=== PATIENT | male | born 1950 | race Caucasian/White ===

== ENCOUNTER 2018-08-25 19:59 | Inpatient (IN) | payer MEDICARE, BC ==
[2018-08-25 21:47] LABS: ADD MAN DIFF? NO
[2018-08-25 21:49] LABS: ABNORMAL IP MESSAGE 1; BASOPHIL # 0.1 10^3/ul (0.0-0.1); BASOPHILS % 0.5 % (0.0-2.0); EOSINOPHILS # 0.1 10^3/ul (0.0-0.5); EOSINOPHILS % 0.6 % (0.0-7.0); HEMATOCRIT 30.3 % (42.0-52.0); HEMOGLOBIN 9.5 g/dl (14.0-18.0); LYMPHOCYTES # 1.4 10^3/ul (0.8-2.9); LYMPHOCYTES % 8.1 % (15.0-51.0); MEAN CORPUSCULAR HEMOGLOBIN 20.9 pg (29.0-33.0); MEAN CORPUSCULAR HGB CONC 31.4 g/dl (32.0-37.0); MEAN CORPUSCULAR VOLUME 66.6 fl (82.0-101.0); MEAN PLATELET VOLUME 11.2 fl (7.4-10.4); MONOCYTES % 5.9 % (0.0-11.0); NEUTROPHIL # 13.1 10^3/ul (1.6-7.5); NEUTROPHILS % 76.8 % (39.0-77.0); PLATELET COUNT 240 10^3/UL (140-415); POSITIVE DIFF @See below; RED BLOOD COUNT 4.55 10^6/ul (4.70-6.10); RED CELL DISTRIBUTION WIDTH 15.9 % (11.5-14.5)
[2018-08-25 21:55] LABS: ALANINE AMINOTRANSFERASE 95 IU/L (13-69); ALBUMIN 3.2 g/dl (3.3-4.9); ALBUMIN/GLOBULIN RATIO 1.03; ALKALINE PHOSPHATASE 137 IU/L (42-121); ANION GAP 8 (5-13); ASPARTATE AMINO TRANSFERASE 85 IU/L (15-46); BILIRUBIN,INDIRECT 0.8 mg/dl (0-1.1); BILIRUBIN,TOTAL 0.8 mg/dl (0.2-1.3); BLOOD UREA NITROGEN 22 mg/dl (7-20); CALCIUM 8.9 mg/dl (8.4-10.2); CARBON DIOXIDE 26 mmol/L (21-31); CHLORIDE 103 mmol/L (97-110); Estimated GFR 46 mL/min (>60); GLUCOSE 202 mg/dl (70-220); LIPASE 213 U/L (23-300); POTASSIUM 3.5 mmol/L (3.5-5.1); SODIUM 137 mmol/L (135-144); TOTAL PROTEIN 6.3 g/dl (6.1-8.1)
[2018-08-25] MEDS: SOD CHLORIDE 0.9% 1,000 ML IV (22:07)
[2018-08-25] MEDS: ONDANSETRON 4 MG INJ IV (22:07)
[2018-08-25] MEDS: morphine 4 MG/ML VIAL IV (22:07)
[2018-08-25 22:17] LABS: TROPONIN-I < 0.012 ng/ml (0.000-0.120)
[2018-08-25 23:04] LABS: ADD UMIC YES; UR ASCORBIC ACID NEGATIVE (NEGATIVE); UR BILIRUBIN (Dip) NEGATIVE (NEGATIVE); UR BLOOD (Dip) 1+ mg/dL (NEGATIVE); UR CLARITY CLEAR (CLEAR); UR COLOR YELLOW (YELLOW); UR GLUCOSE (Dip) 1+ mg/dL (NEGATIVE); UR KETONES (Dip) NEGATIVE (NEGATIVE); UR LEUKOCYTE ESTERASE (Dip) NEGATIVE Leu/ul (NEGATIVE); UR NITRITE (Dip) NEGATIVE (NEGATIVE); UR RBC 1 /HPF (0-5); UR SPECIFIC GRAVITY (Dip) 1.021 (1.003-1.030); UR TOTAL PROTEIN (Dip) 1+ mg/dl (NEGATIVE); UR UROBILINOGEN (Dip) NEGATIVE (NEGATIVE); UR WBC 4 /HPF (0-5)
[2018-08-25] MEDS: PIPER-TAZO 3.375 GM IV (PMX) 100 ML IVPB (23:45)
[2018-08-26] MEDS ORDERED: NACL 0.9% 3 ML SYG IV (00:30)
[2018-08-26] MEDS ORDERED: morphine 2 MG INJ IV (00:30)
[2018-08-26] MEDS ORDERED: ZOLPIDEM 5 MG TAB PO (00:30)
[2018-08-26] MEDS ORDERED: LORAZEPAM 2 MG INJ IV (00:30)
[2018-08-26] MEDS ORDERED: ACETAMINOPHEN 650 MG SUPP PR (00:30)
[2018-08-26] MEDS: AL HYDROX/MG HYDROX/SIMETH 30 ML CUP PO ×9 (01:00→21:00)
[2018-08-26] MEDS: FAMOTIDINE 20 MG INJ IV ×4 (01:00→20:14)
[2018-08-26] MEDS: SOD CHLORIDE 0.9% 1,000 ML IV (01:18)
[2018-08-26 01:21] LABS: AMYLASE 58 U/L (11-123)
[2018-08-26 01:21] LABS: LIPASE 279 U/L (23-300)
[2018-08-26 01:37] LABS: D-DIMER 3825.24 ng/ml (<460)
[2018-08-26 01:43] LABS: PARTIAL THROMBOPLASTIN TIME 36.1 Sec (23.0-35.0)
[2018-08-26] MEDS ORDERED: GLUCOSE GEL 15 GRAM TUBE BUCCAL (06:30)
[2018-08-26] MEDS ORDERED: GLUCOSE GEL 15 GRAM TUBE PO ×2 (06:30)
[2018-08-26] MEDS ORDERED: DEXTROSE 50% 50 ML SYRINGE IV ×2 (06:30)
[2018-08-26] MEDS ORDERED: GLUCAGON 1 MG INJ IM (06:30)
[2018-08-26] MEDS ORDERED: INSULIN ASPART [NOVOLOG] 3 ML PEN SC (08:00)
[2018-08-26] MEDS: INSULIN ASPART [NOVOLOG] 3 ML PEN SC ×5 (08:00→20:20)
[2018-08-26 08:50] LABS: HEMOGLOBIN A1C 8.9 % (0-5.9)
[2018-08-26] MEDS: ENOXAPARIN 40 MG/0.4 ML SYG SC (09:00)
[2018-08-26] MEDS: DEXTROSE 5%-0.45% NACL 1,000 ML IV (17:36)
[2018-08-26] MEDS: INSULIN GLARGINE [LANTus] (100 UNITS/ML) SYG SC (20:16)
[2018-08-27] MEDS: ACETAMINOPHEN 325 MG TAB PO (00:35)
[2018-08-27] MEDS: CLONIDINE 0.1 MG/24 HR PATCH TRANSDERM (00:36)
[2018-08-27] MEDS: INSULIN ASPART [NOVOLOG] 3 ML PEN SC ×6 (00:38→18:07)
[2018-08-27] MEDS: hydrALAzine 20 MG INJ IV ×4 (01:24→15:03)
[2018-08-27] MEDS: SOD CHLORIDE 0.45% 1,000 ML IV ×3 (05:03→20:44)
[2018-08-27 06:33] LABS: WHITE BLOOD COUNT 16.4 10^3/ul (4.8-10.8)
[2018-08-27 06:33] LABS: ABNORMAL IP MESSAGE 1; HEMATOCRIT 32.6 % (42.0-52.0); MEAN CORPUSCULAR HEMOGLOBIN 20.6 pg (29.0-33.0); MEAN CORPUSCULAR HGB CONC 30.7 g/dl (32.0-37.0); MEAN CORPUSCULAR VOLUME 67.1 fl (82.0-101.0); MEAN PLATELET VOLUME 11.7 fl (7.4-10.4); PLATELET COUNT 308 10^3/UL (140-415); POSITIVE DIFF @See below; RED BLOOD COUNT 4.86 10^6/ul (4.70-6.10); RED CELL DISTRIBUTION WIDTH 16.2 % (11.5-14.5)
[2018-08-27 06:47] LABS: ADD MAN DIFF? YES
[2018-08-27 07:04] LABS: ALANINE AMINOTRANSFERASE 107 IU/L (13-69); ALBUMIN/GLOBULIN RATIO 1.07; ALKALINE PHOSPHATASE 143 IU/L (42-121); ANION GAP 10 (5-13); ASPARTATE AMINO TRANSFERASE 71 IU/L (15-46); BILIRUBIN,INDIRECT 1.1 mg/dl (0-1.1); BILIRUBIN,TOTAL 1.1 mg/dl (0.2-1.3); BLOOD UREA NITROGEN 17 mg/dl (7-20); CALCIUM 8.6 mg/dl (8.4-10.2); CARBON DIOXIDE 27 mmol/L (21-31); CHLORIDE 102 mmol/L (97-110); CHOL/HDL RATIO 12.6 RATIO; CHOLESTEROL 126 mg/dl (100-200); CREATININE 1.37 mg/dl (0.61-1.24); Estimated GFR 51 mL/min (>60); GLUCOSE 199 mg/dl (70-220); HDL CHOLESTEROL 10 mg/dl (31-75); LDL CHOLESTEROL,CALCULATED 59 mg/dl; MAGNESIUM 1.9 mg/dl (1.7-2.5); POTASSIUM 3.7 mmol/L (3.5-5.1); SODIUM 139 mmol/L (135-144); TOTAL PROTEIN 5.8 g/dl (6.1-8.1); TRIGLYCERIDES 287 mg/dl (0-149)
[2018-08-27 07:48] LABS: ANISOCYTOSIS 1+ (0-0); BAND NEUTROPHILS #M 1.3 10^3/ul (0.0-0.6); BAND NEUTROPHILS % (M) 8 % (0-4); ELLIPTO 1+ (0-0); GIANT THROMBO% (M) 2 % (0-0); LYMPHOCYTES #M 1.9 10^3/ul (0.8-2.9); LYMPHOCYTES % (M) 12 % (15-51); MONOCYTE #M 0.3 10^3/ul (0.3-0.9); MONOCYTES % (M) 2 % (0-11); MYELOCYTES #M 0.1 10^3/ul (0.0-0.0); MYELOCYTES % (M) 1 % (0-0); OVALOCYTES 1+ (0-0); PLATELET ESTIMATE NORMAL; POIKILOCYTOSIS 1+ (0-0); REACTIVE LYMPHOCYTES #M 0.1 10^3/ul (0.0-0.0); REACTIVE LYMPHOCYTES% (M) 1 % (0-0); SEG NEUT #M 12.7 10^3/ul (1.6-7.5); SEGMENTED NEUTROPHILS (M) % 76 % (39-77); SMUDGE%M 7 % (0-0)
[2018-08-27 07:51] LABS: TOXIC GRANULATION 1+ (0-0)
[2018-08-27] MEDS ORDERED: PIPER-TAZO 3.375 GM IV (PMX) 100 ML IVPB (08:00)
[2018-08-27 08:07] LABS: HEMOGLOBIN A1C 9.1 % (0-5.9)
[2018-08-27] MEDS: ENOXAPARIN 40 MG/0.4 ML SYG SC (09:00)
[2018-08-27] MEDS: FAMOTIDINE 20 MG INJ IV ×3 (09:00→20:52)
[2018-08-27] MEDS: PIPER-TAZO 3.375 GM IV (PMX) 100 ML IVPB ×3 (09:20→18:03)
[2018-08-27] MEDS: REGADENOSON 0.4 MG/5 ML SYG (13:30)
[2018-08-27] MEDS: CLONIDINE 0.2 MG/24 HR PATCH TRANSDERM (14:59)
[2018-08-27] MEDS ORDERED: VANCOMYCIN IV PER PHARMACY XX (16:30)
[2018-08-27] MEDS: AL HYDROX/MG HYDROX/SIMETH 30 ML CUP PO ×2 (16:50→21:00)
[2018-08-27] MEDS ORDERED: IOHEXOL 300MG/ML 30 ML BTL (17:31)
[2018-08-27 18:20] LABS: INR 1.08; PROTIME 14.1 Sec (11.9-14.9); PT RATIO 1.1
[2018-08-27 18:21] LABS: PARTIAL THROMBOPLASTIN TIME 39.4 Sec (23.0-35.0)
[2018-08-27 18:33] LABS: LACTIC ACID 1.2 mmol/L (0.5-2.0)
[2018-08-27] MEDS ORDERED: MIDAZOLAM 1 MG/ML 2 ML INJ (18:49)
[2018-08-27] MEDS ORDERED: FENTAnyl 50 MCG/ML VIAL (18:50)
[2018-08-27] MEDS ORDERED: ONDANSETRON 4 MG INJ (19:24)
[2018-08-27] MEDS ORDERED: LIDOCAINE 2% (SDV) 5 ML INJ (19:27)
[2018-08-27] MEDS ORDERED: ROCURONIUM 50 MG INJ (19:27)
[2018-08-27] MEDS ORDERED: ETOMIDATE 20 MG INJ (19:27)
[2018-08-27] MEDS ORDERED: NEOSTIGMINE 3 MG/3 ML SYRINGE (19:27)
[2018-08-27] MEDS ORDERED: GLYCOPYRROLATE 0.4 MG INJ (19:27)
[2018-08-27] MEDS: INDOMETHACIN 50 MG SUPP PR (19:30)
[2018-08-27] MEDS ORDERED: FENTAnyl 50 MCG/ML VIAL IV (20:00)
[2018-08-27] MEDS ORDERED: LABETALOL HCL 20MG INJ IV (20:00)
[2018-08-27] MEDS ORDERED: MEPERIDINE 25 MG INJ IV (20:00)
[2018-08-27] MEDS ORDERED: hydrALAzine 20 MG INJ IV (20:00)
[2018-08-27] MEDS ORDERED: HYDROmorphONE 1 MG/5 ML IV SYRINGE IV ×2 (20:00)
[2018-08-27] MEDS: INSULIN GLARGINE [LANTus] (100 UNITS/ML) SYG SC (20:00)
[2018-08-27] MEDS ORDERED: ONDANSETRON 4 MG INJ IV (20:00)
[2018-08-27] MEDS ORDERED: DIPHENHYDRAMINE 50 MG INJ IV (20:00)
[2018-08-27] MEDS: VANCOMYCIN HCL 1.75 GM in SOD CHLORIDE 0.9% 500 ML IVPB (20:42)
[2018-08-28] MEDS: INSULIN ASPART [NOVOLOG] 3 ML PEN SC ×4 (01:00→13:00)
[2018-08-28] MEDS: PIPER-TAZO 3.375 GM IV (PMX) 100 ML IVPB ×4 (01:13→21:37)
[2018-08-28] MEDS ORDERED: CEFAZOLIN 1 GM INJ (07:00)
[2018-08-28] MEDS ORDERED: ACETAMINOPHEN 500 MG TAB PO (07:40)
[2018-08-28] MEDS: AL HYDROX/MG HYDROX/SIMETH 30 ML CUP PO ×4 (08:59→21:00)
[2018-08-28] MEDS: ENOXAPARIN 40 MG/0.4 ML SYG SC (08:59)
[2018-08-28] MEDS: FAMOTIDINE 20 MG INJ IV ×2 (09:00→21:00)
[2018-08-28] MEDS ORDERED: PROPOFOL 40 ML (09:13)
[2018-08-28] MEDS ORDERED: LIDOCAINE 2% (SDV) 5 ML INJ (09:13)
[2018-08-28] MEDS ORDERED: ONDANSETRON 4 MG INJ (09:13)
[2018-08-28] MEDS ORDERED: FENTAnyl 50 MCG/ML VIAL ×2 (09:13→10:39)
[2018-08-28] MEDS ORDERED: ROCURONIUM 50 MG INJ (09:13)
[2018-08-28] MEDS ORDERED: FAMOTIDINE 20 MG INJ (09:14)
[2018-08-28] MEDS ORDERED: DIPHENHYDRAMINE 50 MG INJ IV (09:30)
[2018-08-28] MEDS ORDERED: MEPERIDINE 25 MG INJ IV (09:30)
[2018-08-28] MEDS ORDERED: morphine 2 MG INJ IV ×2 (09:30)
[2018-08-28] MEDS ORDERED: ALBUTEROL 0.083% (NEB) 2.5 MG/3 ML AMP HHN (09:30)
[2018-08-28] MEDS ORDERED: OXYCODONE/ACETAMINOPHEN (5/325) TAB PO ×4 (09:30→14:01)
[2018-08-28] MEDS ORDERED: HYDROmorphONE 1 MG/5 ML IV SYRINGE IV ×2 (09:30)
[2018-08-28] MEDS ORDERED: ONDANSETRON 4 MG INJ IV ×2 (09:30→11:00)
[2018-08-28] MEDS ORDERED: FENTAnyl 50 MCG/ML VIAL IV ×2 (09:30)
[2018-08-28] MEDS ORDERED: LABETALOL HCL 20MG INJ IV (09:30)
[2018-08-28] MEDS ORDERED: EPHEDrine 25 MG/5 ML SYG (09:44)
[2018-08-28] MEDS ORDERED: PHENYLephrine (100 MCG/ML) 10ML SYG (09:44)
[2018-08-28] MEDS ORDERED: ROPIVACAINE 0.5 % 30 ML VIAL (09:48)
[2018-08-28] MEDS: BUPIVACAINE 0.25% (MPF) 30 ML INJ (10:00)
[2018-08-28] MEDS ORDERED: metroNIDAZOLE 500 MG/NS (PMX) 100 ML IVPB (10:24)
[2018-08-28] MEDS ORDERED: SUGAMMADEX SODIUM 200 MG/2 ML VIAL IV (10:30)
[2018-08-28 11:30] LABS: ABNORMAL IP MESSAGE 1; HEMOGLOBIN 9.1 g/dl (14.0-18.0); MEAN CORPUSCULAR HEMOGLOBIN 20.6 pg (29.0-33.0); MEAN CORPUSCULAR HGB CONC 30.3 g/dl (32.0-37.0); MEAN PLATELET VOLUME 10.9 fl (7.4-10.4); PLATELET COUNT 290 10^3/UL (140-415); POSITIVE DIFF @See below; RED BLOOD COUNT 4.41 10^6/ul (4.70-6.10); RED CELL DISTRIBUTION WIDTH 16.2 % (11.5-14.5)
[2018-08-28 11:30] LABS: WHITE BLOOD COUNT 12.3 10^3/ul (4.8-10.8)
[2018-08-28 11:40] LABS: ADD MAN DIFF? YES
[2018-08-28 11:53] LABS: ALANINE AMINOTRANSFERASE 78 IU/L (13-69); ALBUMIN 2.8 g/dl (3.3-4.9); ALBUMIN/GLOBULIN RATIO 0.87; ALKALINE PHOSPHATASE 139 IU/L (42-121); ANION GAP 12 (5-13); ASPARTATE AMINO TRANSFERASE 48 IU/L (15-46); BILIRUBIN,INDIRECT 0.5 mg/dl (0-1.1); BILIRUBIN,TOTAL 0.5 mg/dl (0.2-1.3); BLOOD UREA NITROGEN 22 mg/dl (7-20); CALCIUM 7.8 mg/dl (8.4-10.2); CARBON DIOXIDE 21 mmol/L (21-31); CHLORIDE 108 mmol/L (97-110); CREATININE 1.86 mg/dl (0.61-1.24); Estimated GFR 36 mL/min (>60); GLUCOSE 205 mg/dl (70-220); LIPASE 91 U/L (23-300); POTASSIUM 3.5 mmol/L (3.5-5.1); SODIUM 141 mmol/L (135-144)
[2018-08-28] MEDS: HYDROmorphONE 1 MG/5 ML IV SYRINGE IV (11:54)
[2018-08-28 12:18] LABS: ANISOCYTOSIS 1+ (0-0); BAND NEUTROPHILS #M 0.4 10^3/ul (0.0-0.6); BAND NEUTROPHILS % (M) 4 % (0-4); BURR CELLS 1+ (0-0); HYPOCHROMASIA 1+ (0-0); LYMPHOCYTES #M 0.9 10^3/ul (0.8-2.9); LYMPHOCYTES % (M) 8 % (15-51); METAMYELOCYTES #M 0.1 10^3/ul (0.0-0.0); METAMYELOCYTES %M 1 % (0-0); MICROCYTOSIS 1+ (0-0); MONOCYTE #M 0.4 10^3/ul (0.3-0.9); MONOCYTES % (M) 4 % (0-11); MYELOCYTES #M 0.1 10^3/ul (0.0-0.0); MYELOCYTES % (M) 1 % (0-0); OVALOCYTES 1+ (0-0); PLATELET ESTIMATE NORMAL; POIKILOCYTOSIS 2+ (0-0); POLYCHROMASIA 1+ (0-0); REACTIVE LYMPHOCYTES #M 0.1 10^3/ul (0.0-0.0); REACTIVE LYMPHOCYTES% (M) 1 % (0-0); SEGMENTED NEUTROPHILS (M) % 81 % (39-77)
[2018-08-28] MEDS: SOD CHLORIDE 0.45% 1,000 ML IV (12:33)
[2018-08-28] MEDS: TERAZOSIN 5 MG CAP PO (13:44)
[2018-08-28] MEDS: ONDANSETRON 4 MG INJ IV (15:04)
[2018-08-28] MEDS: Insulin NOVOLOG SS MODERATE Algorithm (SS with meals and bedtime) SC ×2 (17:29→21:34)
[2018-08-28] MEDS ORDERED: INSULIN ASPART [NOVOLOG] 3 ML PEN SC (17:35)
[2018-08-28] MEDS: INSULIN GLARGINE [LANTus] (100 UNITS/ML) SYG SC (21:30)
[2018-08-28] MEDS: morphine 2 MG INJ IV (22:00)
[2018-08-29] MEDS: TERAZOSIN 5 MG CAP PO ×3 (01:19→21:02)
[2018-08-29] MEDS: morphine 2 MG INJ IV (01:26)
[2018-08-29] MEDS: SOD CHLORIDE 0.45% 1,000 ML IV ×2 (03:30→16:13)
[2018-08-29] MEDS: PIPER-TAZO 3.375 GM IV (PMX) 100 ML IVPB ×3 (06:20→22:04)
[2018-08-29] MEDS: Insulin NOVOLOG SS MODERATE Algorithm (SS with meals and bedtime) SC ×4 (08:10→21:05)
[2018-08-29] MEDS: AL HYDROX/MG HYDROX/SIMETH 30 ML CUP PO ×4 (08:11→21:02)
[2018-08-29] MEDS: ENOXAPARIN 40 MG/0.4 ML SYG SC (08:11)
[2018-08-29] MEDS: FAMOTIDINE 20 MG INJ IV (08:12)
[2018-08-29] MEDS: VANCOMYCIN HCL 1.25 GM in SOD CHLORIDE 0.9% 250 ML IVPB (08:56)
[2018-08-29] MEDS: ACETAMINOPHEN 325 MG TAB PO (08:57)
[2018-08-29 10:47] LABS: ADD MAN DIFF? NO
[2018-08-29 10:49] LABS: WHITE BLOOD COUNT 11.6 10^3/ul (4.8-10.8)
[2018-08-29 10:49] LABS: ABNORMAL IP MESSAGE 1; BASOPHILS % 0.3 % (0.0-2.0); EOSINOPHILS # 0.1 10^3/ul (0.0-0.5); EOSINOPHILS % 0.6 % (0.0-7.0); HEMATOCRIT 26.2 % (42.0-52.0); HEMOGLOBIN 8.1 g/dl (14.0-18.0); LYMPHOCYTES # 1.2 10^3/ul (0.8-2.9); MEAN CORPUSCULAR HEMOGLOBIN 20.7 pg (29.0-33.0); MEAN CORPUSCULAR HGB CONC 30.9 g/dl (32.0-37.0); MEAN PLATELET VOLUME 10.6 fl (7.4-10.4); MONOCYTE # 0.8 10^3/ul (0.3-0.9); MONOCYTES % 7.2 % (0.0-11.0); NEUTROPHIL # 8.8 10^3/ul (1.6-7.5); NEUTROPHILS % 76.2 % (39.0-77.0); PLATELET COUNT 277 10^3/UL (140-415); POSITIVE DIFF @See below; RED BLOOD COUNT 3.91 10^6/ul (4.70-6.10); RED CELL DISTRIBUTION WIDTH 16.1 % (11.5-14.5)
[2018-08-29 11:07] LABS: BILIRUBIN,INDIRECT 0.8 mg/dl (0-1.1); BILIRUBIN,TOTAL 0.8 mg/dl (0.2-1.3)
[2018-08-29 11:08] LABS: IRON < 10 ug/dl (35-150)
[2018-08-29 11:09] LABS: ALANINE AMINOTRANSFERASE 55 IU/L (13-69); ALBUMIN 2.6 g/dl (3.3-4.9); ALBUMIN/GLOBULIN RATIO 0.86; ALKALINE PHOSPHATASE 105 IU/L (42-121); ANION GAP 9 (5-13); ASPARTATE AMINO TRANSFERASE 31 IU/L (15-46); BILIRUBIN,INDIRECT 0.8 mg/dl (0-1.1); BILIRUBIN,TOTAL 0.8 mg/dl (0.2-1.3); BLOOD UREA NITROGEN 21 mg/dl (7-20); CALCIUM 7.7 mg/dl (8.4-10.2); CARBON DIOXIDE 22 mmol/L (21-31); CHLORIDE 108 mmol/L (97-110); CREATININE 1.88 mg/dl (0.61-1.24); Estimated GFR 36 mL/min (>60); GLUCOSE 264 mg/dl (70-220); LIPASE 155 U/L (23-300); POTASSIUM 3.5 mmol/L (3.5-5.1); SODIUM 139 mmol/L (135-144); TOTAL PROTEIN 5.6 g/dl (6.1-8.1)
[2018-08-29 11:17] LABS: TOTAL IRON BINDING CAPACITY 212 ug/dl (241-421)
[2018-08-29 13:04] LABS: ADD UMIC YES; UR ASCORBIC ACID NEGATIVE (NEGATIVE); UR BACTERIA FEW /HPF (NONE SEEN); UR BILIRUBIN (Dip) NEGATIVE (NEGATIVE); UR BLOOD (Dip) 2+ mg/dL (NEGATIVE); UR CLARITY SLIGHTLY CLOUDY (CLEAR); UR COLOR YELLOW (YELLOW); UR GLUCOSE (Dip) 1+ mg/dL (NEGATIVE); UR KETONES (Dip) NEGATIVE (NEGATIVE); UR LEUKOCYTE ESTERASE (Dip) TRACE Leu/ul (NEGATIVE); UR NITRITE (Dip) NEGATIVE (NEGATIVE); UR RBC 20 /HPF (0-5); UR SPECIFIC GRAVITY (Dip) 1.017 (1.003-1.030); UR TOTAL PROTEIN (Dip) 1+ mg/dl (NEGATIVE); UR UROBILINOGEN (Dip) NEGATIVE (NEGATIVE); UR WBC 9 /HPF (0-5)
[2018-08-29] MEDS: SOD FERRIC GLUC COMPLX 125 MG in SOD CHLORIDE 0.9% 100 ML IVPB (17:10)
[2018-08-29] MEDS: INSULIN GLARGINE [LANTus] (100 UNITS/ML) SYG SC (21:04)
[2018-08-29] MEDS ORDERED: ALBUTEROL/IPRATROPIUM (NEB) 3 ML AMP HHN (22:30)
[2018-08-29] MEDS: ALBUTEROL/IPRATROPIUM (NEB) 3 ML AMP HHN (23:29)
[2018-08-30] MEDS: PIPER-TAZO 3.375 GM IV (PMX) 100 ML IVPB ×3 (05:30→23:41)
[2018-08-30] MEDS: ALBUTEROL/IPRATROPIUM (NEB) 3 ML AMP HHN ×2 (08:00→16:00)
[2018-08-30 08:15] LABS: ABNORMAL IP MESSAGE 1; HEMATOCRIT 25.7 % (42.0-52.0); MEAN CORPUSCULAR HEMOGLOBIN 20.7 pg (29.0-33.0); MEAN CORPUSCULAR HGB CONC 31.1 g/dl (32.0-37.0); MEAN CORPUSCULAR VOLUME 66.4 fl (82.0-101.0); MEAN PLATELET VOLUME 11.2 fl (7.4-10.4); PLATELET COUNT 306 10^3/UL (140-415); POSITIVE DIFF @See below; RED BLOOD COUNT 3.87 10^6/ul (4.70-6.10); RED CELL DISTRIBUTION WIDTH 15.8 % (11.5-14.5)
[2018-08-30 08:15] LABS: WHITE BLOOD COUNT 11.4 10^3/ul (4.8-10.8)
[2018-08-30 08:20] LABS: ADD MAN DIFF? YES
[2018-08-30 08:37] LABS: ALANINE AMINOTRANSFERASE 44 IU/L (13-69); ALBUMIN 2.4 g/dl (3.3-4.9); ALBUMIN/GLOBULIN RATIO 0.92; ALKALINE PHOSPHATASE 99 IU/L (42-121); ANION GAP 9 (5-13); ASPARTATE AMINO TRANSFERASE 21 IU/L (15-46); BILIRUBIN,INDIRECT 0.8 mg/dl (0-1.1); BILIRUBIN,TOTAL 0.8 mg/dl (0.2-1.3); BLOOD UREA NITROGEN 16 mg/dl (7-20); CALCIUM 7.7 mg/dl (8.4-10.2); CARBON DIOXIDE 22 mmol/L (21-31); CHLORIDE 108 mmol/L (97-110); CREATININE 1.87 mg/dl (0.61-1.24); Estimated GFR 36 mL/min (>60); GLUCOSE 231 mg/dl (70-220); POTASSIUM 3.6 mmol/L (3.5-5.1); SODIUM 139 mmol/L (135-144)
[2018-08-30] MEDS: FAMOTIDINE 20 MG TAB PO (08:53)
[2018-08-30] MEDS: TERAZOSIN 5 MG CAP PO ×2 (08:53→20:41)
[2018-08-30] MEDS: ENOXAPARIN 40 MG/0.4 ML SYG SC (08:54)
[2018-08-30] MEDS: AL HYDROX/MG HYDROX/SIMETH 30 ML CUP PO ×4 (08:54→20:54)
[2018-08-30 08:55] LABS: D-DIMER 3773.83 ng/ml (<460)
[2018-08-30] MEDS: Insulin NOVOLOG SS MODERATE Algorithm (SS with meals and bedtime) SC ×4 (08:55→20:35)
[2018-08-30 09:55] LABS: ANISOCYTOSIS 2+ (0-0); BAND NEUTROPHILS #M 0.2 10^3/ul (0.0-0.6); BAND NEUTROPHILS % (M) 2 % (0-4); BASOPHIL #M 0.1 10^3/ul (0.0-0.0); BASOPHILS % (M) 1 % (0-2); BURR CELLS 1+ (0-0); HYPOCHROMASIA 1+ (0-0); LYMPHOCYTES #M 0.6 10^3/ul (0.8-2.9); LYMPHOCYTES % (M) 6 % (15-51); METAMYELOCYTES #M 0.1 10^3/ul (0.0-0.0); METAMYELOCYTES %M 1 % (0-0); MICROCYTOSIS 2+ (0-0); MONOCYTE #M 0.1 10^3/ul (0.3-0.9); MONOCYTES % (M) 1 % (0-11); MYELOCYTES #M 0.1 10^3/ul (0.0-0.0); MYELOCYTES % (M) 1 % (0-0); OVALOCYTES 2+ (0-0); PLATELET ESTIMATE NORMAL; POIKILOCYTOSIS 2+ (0-0); POLYCHROMASIA 2+ (0-0); REACTIVE LYMPHOCYTES #M 0.1 10^3/ul (0.0-0.0); REACTIVE LYMPHOCYTES% (M) 1 % (0-0); SEG NEUT #M 9.9 10^3/ul (1.6-7.5); SEGMENTED NEUTROPHILS (M) % 87 % (39-77); TEAR DROP CELLS 1+ (0-0)
[2018-08-30] MEDS: SOD CHLORIDE 0.45% 1,000 ML IV (11:12)
[2018-08-30] MEDS: SOD FERRIC GLUC COMPLX 125 MG in SOD CHLORIDE 0.9% 100 ML IVPB (12:25)
[2018-08-30 18:30] LABS: ABNORMAL IP MESSAGE 1; HEMATOCRIT 25.4 % (42.0-52.0); HEMOGLOBIN 7.8 g/dl (14.0-18.0); MEAN CORPUSCULAR HEMOGLOBIN 20.5 pg (29.0-33.0); MEAN CORPUSCULAR HGB CONC 30.7 g/dl (32.0-37.0); MEAN CORPUSCULAR VOLUME 66.7 fl (82.0-101.0); MEAN PLATELET VOLUME 10.5 fl (7.4-10.4); PLATELET COUNT 291 10^3/UL (140-415); POSITIVE DIFF @See below; RED BLOOD COUNT 3.81 10^6/ul (4.70-6.10); RED CELL DISTRIBUTION WIDTH 15.9 % (11.5-14.5)
[2018-08-30 18:48] LABS: ADD MAN DIFF? YES
[2018-08-30 18:52] LABS: ALANINE AMINOTRANSFERASE 45 IU/L (13-69); ALBUMIN 2.5 g/dl (3.3-4.9); ALKALINE PHOSPHATASE 93 IU/L (42-121); ANION GAP 5 (5-13); ASPARTATE AMINO TRANSFERASE 26 IU/L (15-46); BILIRUBIN,INDIRECT 0.5 mg/dl (0-1.1); BILIRUBIN,TOTAL 0.5 mg/dl (0.2-1.3); BLOOD UREA NITROGEN 14 mg/dl (7-20); CALCIUM 7.7 mg/dl (8.4-10.2); CARBON DIOXIDE 24 mmol/L (21-31); CHLORIDE 108 mmol/L (97-110); CREATININE 1.77 mg/dl (0.61-1.24); Estimated GFR 38 mL/min (>60); GLUCOSE 218 mg/dl (70-220); MAGNESIUM 2.2 mg/dl (1.7-2.5); POTASSIUM 3.4 mmol/L (3.5-5.1); SODIUM 137 mmol/L (135-144); TOTAL PROTEIN 5.6 g/dl (6.1-8.1)
[2018-08-30 19:08] LABS: D-DIMER 3151.83 ng/ml (<460)
[2018-08-30 19:32] LABS: ANISOCYTOSIS 2+ (0-0); BAND NEUTROPHILS #M 0.3 10^3/ul (0.0-0.6); BAND NEUTROPHILS % (M) 3 % (0-4); LYMPHOCYTES #M 1.2 10^3/ul (0.8-2.9); LYMPHOCYTES % (M) 12 % (15-51); MICROCYTOSIS 1+ (0-0); MONOCYTE #M 0.4 10^3/ul (0.3-0.9); MONOCYTES % (M) 4 % (0-11); MYELOCYTES #M 0.1 10^3/ul (0.0-0.0); MYELOCYTES % (M) 1 % (0-0); PLATELET ESTIMATE NORMAL; POIKILOCYTOSIS 2+ (0-0); POLYCHROMASIA 3+ (0-0); SEGMENTED NEUTROPHILS (M) % 80 % (39-77)
[2018-08-30] MEDS: INSULIN GLARGINE [LANTus] (100 UNITS/ML) SYG SC (20:37)
[2018-08-30] MEDS: VANCOMYCIN HCL 1.25 GM in SOD CHLORIDE 0.9% 250 ML IVPB (20:37)
[2018-08-31] MEDS: ALBUTEROL/IPRATROPIUM (NEB) 3 ML AMP HHN ×3 (00:41→16:00)
[2018-08-31] MEDS: SOD CHLORIDE 0.45% 1,000 ML IV (04:02)
[2018-08-31] MEDS: PIPER-TAZO 3.375 GM IV (PMX) 100 ML IVPB ×2 (06:44→14:15)
[2018-08-31] MEDS: AL HYDROX/MG HYDROX/SIMETH 30 ML CUP PO ×2 (08:28→12:34)
[2018-08-31] MEDS: TERAZOSIN 5 MG CAP PO (08:28)
[2018-08-31] MEDS: FAMOTIDINE 20 MG TAB PO (08:29)
[2018-08-31] MEDS: ENOXAPARIN 40 MG/0.4 ML SYG SC (08:31)
[2018-08-31] MEDS: Insulin NOVOLOG SS MODERATE Algorithm (SS with meals and bedtime) SC ×2 (08:33→12:27)
[2018-08-31] MEDS: SOD FERRIC GLUC COMPLX 125 MG in SOD CHLORIDE 0.9% 100 ML IVPB (12:34)
== END 2018-08-31 16:19 | disposition home or self-care (01) | DRG 419 ==
LOC: PP2 23:31 → E/R 19:59
PROC: 0FC98ZZ Extirpation of Matter from Common Bile Duct, Via Natural or Artificial Opening Endoscopic (ICD-10-PCS; principal; 2018-08-27 11:00)
PROC: 0F798DZ Dilation of Common Bile Duct with Intraluminal Device, Via Natural or Artificial Opening Endoscopic (ICD-10-PCS; 2018-08-27 11:00)
PROC: 0FT44ZZ Resection of Gallbladder, Percutaneous Endoscopic Approach (ICD-10-PCS; 2018-08-27 18:32)
DX: K80.00 Calculus of gallbladder with acute cholecystitis without obstruction (principal); K82.A1 Gangrene of gallbladder in cholecystitis; E66.9 Obesity, unspecified; Z68.34 Body mass index [BMI] 34.0-34.9, adult; I25.9 Chronic ischemic heart disease, unspecified; E11.8 Type 2 diabetes mellitus with unspecified complications; I12.9 Hypertensive chronic kidney disease with stage 1 through stage 4 chronic kidney disease, or unspecified chronic kidney disease; N18.9 Chronic kidney disease, unspecified; N40.0 Benign prostatic hyperplasia without lower urinary tract symptoms; E78.5 Hyperlipidemia, unspecified; K59.00 Constipation, unspecified; D63.1 Anemia in chronic kidney disease; G44.209 Tension-type headache, unspecified, not intractable; K57.90 Diverticulosis of intestine, part unspecified, without perforation or abscess without bleeding; D64.9 Anemia, unspecified; Z86.73 Personal history of transient ischemic attack (TIA), and cerebral infarction without residual deficits; I25.10 Atherosclerotic heart disease of native coronary artery without angina pectoris; Z79.82 Long term (current) use of aspirin
CPT/HCPCS: 36415; 71045; 74330; 76705; 78452; 80053; 80061; 81001; 82150; 82247; 82248; 82962; 83036; 83540; 83605; 83690; 83735; 84443; 84484; 85025; 85378; 85610; 85730; 87040-91; 87070; 87075; 87086; 87102; 87116; 88304; 93005; 93017; 93970; 94640; 94664; 96361; 96374; 96375; 99285-25

== ENCOUNTER → 2018-11-11 | Outpatient (CLI) | payer MEDICARE, BC ==
[2018-11-11 11:36] LABS: ADD MAN DIFF? NO
[2018-11-11 11:38] LABS: WHITE BLOOD COUNT 5.2 10^3/ul (4.8-10.8)
[2018-11-11 11:38] LABS: BASOPHILS % 0.4 % (0.0-2.0); EOSINOPHILS # 0.1 10^3/ul (0.0-0.5); EOSINOPHILS % 2.1 % (0.0-7.0); HEMATOCRIT 38.6 % (42.0-52.0); HEMOGLOBIN 11.3 g/dl (14.0-18.0); LYMPHOCYTES # 1.8 10^3/ul (0.8-2.9); MEAN CORPUSCULAR HEMOGLOBIN 20.7 pg (29.0-33.0); MEAN CORPUSCULAR HGB CONC 29.3 g/dl (32.0-37.0); MEAN CORPUSCULAR VOLUME 70.8 fl (82.0-101.0); MEAN PLATELET VOLUME 10.1 fl (7.4-10.4); MONOCYTE # 0.3 10^3/ul (0.3-0.9); MONOCYTES % 6.3 % (0.0-11.0); NEUTROPHILS % 56.8 % (39.0-77.0); PLATELET COUNT 224 10^3/UL (140-415); RED BLOOD COUNT 5.45 10^6/ul (4.70-6.10); RED CELL DISTRIBUTION WIDTH 15.8 % (11.5-14.5)
[2018-11-11 11:57] LABS: ALANINE AMINOTRANSFERASE 36 IU/L (13-69); ALBUMIN 4.5 g/dl (3.3-4.9); ALBUMIN/GLOBULIN RATIO 1.32; ALKALINE PHOSPHATASE 69 IU/L (42-121); ANION GAP 10 (5-13); ASPARTATE AMINO TRANSFERASE 23 IU/L (15-46); BILIRUBIN,INDIRECT 1.7 mg/dl (0-1.1); BILIRUBIN,TOTAL 1.7 mg/dl (0.2-1.3); BLOOD UREA NITROGEN 16 mg/dl (7-20); CALCIUM 9.9 mg/dl (8.4-10.2); CARBON DIOXIDE 27 mmol/L (21-31); CHLORIDE 102 mmol/L (97-110); CREATININE 1.37 mg/dl (0.61-1.24); Estimated GFR 51 mL/min (>60); GLUCOSE 304 mg/dl (70-220); POTASSIUM 4.4 mmol/L (3.5-5.1); SODIUM 139 mmol/L (135-144); TOTAL PROTEIN 7.9 g/dl (6.1-8.1)
[2018-11-11 11:58] LABS: PARTIAL THROMBOPLASTIN TIME 29.7 Sec (23.0-35.0)
[2018-11-11 12:13] LABS: PROTIME 13.3 Sec (11.9-14.9)
== END | disposition home or self-care (01) ==
LOC: LAB 11:07
DX: Z01.818 Encounter for other preprocedural examination (principal)
CPT/HCPCS: 71045; 80053; 85025; 85610; 85730; 93005

== ENCOUNTER 2018-11-21 11:00 | Day surgery (SDC) | payer MEDICARE, BC ==
[2018-11-21] MEDS ORDERED: IOHEXOL 300MG/ML 30 ML BTL ×2 (12:31)
[2018-11-21] MEDS ORDERED: PROPOFOL 40 ML (12:55)
[2018-11-21] MEDS ORDERED: MIDAZOLAM 1 MG/ML 2 ML INJ (12:55)
[2018-11-21] MEDS ORDERED: LIDOCAINE 2% (SDV) 5 ML INJ (12:55)
[2018-11-21] MEDS ORDERED: INDOMETHACIN 50 MG SUPP PR (13:00)
== END 2018-11-21 14:52 | disposition home or self-care (01) ==
LOC: GIL 11:00 → SDS 11:00 → GIL 14:52
DX: K83.8 Other specified diseases of biliary tract (principal); Z46.59 Encounter for fitting and adjustment of other gastrointestinal appliance and device; E11.9 Type 2 diabetes mellitus without complications; I12.9 Hypertensive chronic kidney disease with stage 1 through stage 4 chronic kidney disease, or unspecified chronic kidney disease; N18.9 Chronic kidney disease, unspecified; Z79.4 Long term (current) use of insulin
CPT/HCPCS: 43264; 74330; 82962